=== PATIENT | female | born 1995 | race Caucasian/White ===

== ENCOUNTER 2025-02-11 13:59 | Outpatient (CLI) | payer OTHER, SELFPAY ==
--- NOTE | ~2025-02-11 | XR_ITS ---
EXAMINATION: [id number], 02/11/2025 14:07 CDT HISTORY: Pain in left knee x 1 year, no inj, no surgery COMPARISON: No comparisons available. Findings: No acute fracture or malalignment. No significant degenerative changes. Soft tissues unremarkable. Impression: No acute fracture or malalignment. Reviewed, dictated and finalized at location P. Impression: No acute fracture or malalignment.
== END 2025-02-11 14:00 | disposition home or self-care (01) ==
LOC: GOSHIMG 13:59
PROVIDERS: PCP Nurse Practitioner Family; Visit Provider Nurse Practitioner Family
DX: M25.562 Pain in left knee (principal)
CPT/HCPCS: 73560